=== PATIENT | female | born 1930 | race Caucasian/White ===

== ENCOUNTER 2017-02-07 14:33 | Inpatient (IN) ==
[2017-02-07] MEDS ORDERED: PERCOCET-5 PO ONE (15:17)
[2017-02-07] MEDS ORDERED: NS 1,000 ML IV ONE ×2 (15:17→17:18)
[2017-02-07 15:49] LABS: MANUAL DIFF NEEDED? NO
[2017-02-07 15:58] LABS: URINE CULTURE NEEDED? NO; URINE MICRO REVIEW NEEDED? NO; URINE SOURCE CLEAN CATCH
[2017-02-07 16:07] LABS: BASO% 0.4 % (0.0-0.8); EOS# 0.06 X1000 (0.0-0.7); EOS% 1.2 % (0.0-10.0); HEMATOCRIT 35.7 % (37.0-47.0); HEMOGLOBIN 11.5 g/dL (12.0-16.0); LYMPH# 1.06 X1000 (1.2-3.4); LYMPH% 21.5 % (20.5-51.1); MCH 27.3 PG (27-31); MCHC 32.2 g/dL (33-37); MCV 84.6 FL (81-99); MONO# 0.64 X1000 (0.11-0.59); NEUT% 63.9 % (42.2-75.2); PLT 257 X1000 (130-400); RBC 4.22 XMIL (4.2-5.4)
[2017-02-07 16:08] LABS: BILIRUBIN URINE NEGATIVE (NEGATIVE); BLOOD URINE NEGATIVE (NEGATIVE); COLOR YELLOW; GLUCOSE URINE NEGATIVE (NEGATIVE); LEUKOCYTES URINE NEGATIVE (NEGATIVE); NITRITE URINE NEGATIVE (NEGATIVE); PROTEIN URINE NEGATIVE (NEGATIVE); SP GRAVITY URINE 1.017; TURBIDITY URINE CLEAR (CLEAR); UROBILINOGEN URINE NORMAL (NORMAL)
[2017-02-07 16:09] LABS: UR EPITHELIAL CELLS <10 /HPF (<10); URINE BACTERIA NEGATIVE /HPF; URINE RBC <10 /HPF (<10); URINE WBC <10 /HPF (<10)
[2017-02-07 16:44] LABS: ALBUMIN 3.6 g/dL (3.5-5.0); CALCIUM 9.3 mg/dL (8.8-10.2); TOTAL BILIRUBIN 0.14 mg/dL (0.20-1.00); TOTAL PROTEIN 7.6 g/dL (6.3-8.3)
[2017-02-07 16:45] LABS: POTASSIUM 6.3 mmol/L (3.5-5.1)
[2017-02-07] MEDS ORDERED: D50W SYRINGE IV ONE (16:53)
[2017-02-07] MEDS ORDERED: CALCIUM GLUCONATE IV PUSH ONE (16:53)
[2017-02-07] MEDS ORDERED: HUMULIN R IV ONE (16:53)
[2017-02-07] MEDS ORDERED: D50W SYRINGE ONE (16:56)
--- NOTE | 2017-02-07 17:18 | PROVIDER DOCUMENTATION ---
This chart was entered by Noemí Carroll Scribe, acting as scribe for Francisco Wilson MD. HPI-Abdominal Pain/GI Problem - General Chief Complaint: Flank Pain Stated Complaint: KIDNEY PAIN Time Seen by Provider: 02/07/17 14:49 Source: patient Allergies/Adverse Reactions: Patient Allergies Allergy/AdvReac Type Severity Reaction Status Date / Time No Known Allergies Allergy Verified 02/07/17 14:45 Home Medications: Home Medication List Medication Instructions Recorded Confirmed Last Taken Type Multivitamins/Minerals [Centrum 1 each PO DAILY 01/19/17 02/04/17 02/04/17 10: 00 History Silver] Hydrocodone/APAP 5 mg/325 mg 1 tab PO BID 02/04/17 02/04/17 02/07/17 14:15 History [[place]-5] - History of Present Illness-ABD Nature of Presenting Problems: Pt is a 86 year old female who came to the ED with a cc of right sided flank pain. Pt reports she had a fall 4 weeks ago and came to the ED and had an x-ray , and has been back three times since then for back pain. Pt reports she has had a UTI two weeks ago and reports it is gone now. Abdominal Pain Onset Location: reports: [facility] Pain Radiation: reports: no radiation Quality of Pain: reports: sharp Severity in ED: reports: mild Onset/Duration: reports: 1 week ago Timing: reports: still present Activities at Onset: reports: none Exposure to sick contacts?: Yes Modifying Factors: improves with: nothing Associated Symptoms: reports: denies symptoms Last BM: unsure Dark Stools Present?: reports: none noticed Rectal Bleeding: reports: none Rectal Pain: reports: none Bruising or Bleeding Gums?: No Similar Symptoms Previously?: Yes Recently seen or treated by another doctor?: Yes Review of Systems - Adult - REVIEW OF SYSTEMS - ADULT Constitutional: denies: chills, fever Eyes: reports: no symptoms reported Ears, Nose, Mouth & Throat: reports: no symptoms reported Cardiovascular: reports: no symptoms reported Respiratory: reports: no symptoms reported Gastrointestinal: denies: diarrhea, nausea, vomiting Genitourinary: reports: flank pain (right). denies: dysuria, urinary retention Musculoskeletal: reports: no symptoms reported Integumentary: reports: no symptoms reported Neurological: denies: paresthesia, syncope Psychiatric: reports: no symptoms reported Endocrine: reports: no symptoms reported Hematologic/Lymphatic: reports: no symptoms reported Allergic/Immunologic: reports: no symptoms reported All Other Systems: Reviewed and Negative Past History - Adult - PAST MEDICAL HISTORY-ADULT Review of Records: reports: Nursing Assessment Review Major Childhood Illnesses: reports: denies history Cardiovascular: reports: denies history Respiratory: reports: denies history Gastrointestinal: reports: denies history Obstetrical/Gynecological: reports: denies history Genitourinary: reports: kidney stones Musculoskeletal: reports: denies history Neurological: reports: dementia Endocrine/Immune: reports: denies history Other Conditions: reports: denies history - PRIOR SURGERIES/PROCEDURES Surgical/Procedure History: reports: hysterectomy, other (cataract sx) - IMMUNIZATION STATUS Childhood Immunizations: See Nurse Assessment Flu Vaccine: See Nurse Assessment - FAMILY HISTORY Family History: reviewed, not pertinent Physical Exam-General - PHYSICAL EXAM-ADULT Initial Vital Signs Reviewed: Yes - CONSTITUTIONAL General Appearance: appears well, alert, no apparent distress - EYES Eyes: PERRL/EOMI, pink conjunctivae - HEAD, EARS, NOSE, MOUTH & THROAT HENMT: normocephalic/atraumatic, moist mucous membranes - NECK Neck: non-tender, full range of motion - RESPIRATORY Respiratory: chest non-tender, lungs clear - CARDIOVASCULAR Cardiovascular: normal peripheral pulses, regular rate, rhythm - GASTROINTESTINAL (ABDOMEN) Abdominal Exam: normal bowel sounds, tenderness (left flank pain) - MUSCULOSKELETAL Back Exam: normal inspection, no CVA tenderness Extremity: normal range of motion, non-tender - SKIN Integumentary: normal color, normal turgor - NEUROLOGIC Neurologic: grossly normal - PSYCHIATRIC Psych/Mental Status: normal mood/affect, normal thought content, normal thought process, oriented x 3 Progress - PLAN OF CARE/RESULTS Progress/Plan/Lab Results: Vital Signs - 8 hr 02/07/17 14:36 Temperature 98.7 F Pulse Rate 72 Respiratory Rate 18 Blood Pressure 187/77 O2 Sat by Pulse Oximetry 97 Result Diagrams: 02/07/17 15:42 02/07/17 15:42 - EKG 1 Time of EKG reading by physician:: 16:45 EKG Read and Signed by:: Francisco Wilson EKG Interpretation (*Must complete 3 of following elements*): Abnormal Rate: 66 (septal infarct, age undetermined) Rhythm: NSR - CONSULTS/PCP/HOSPITALIST Notification #1 *Consult/PCP/Hospitalist*: Dr. Rollins Time Discussed: 17:17 Consult Disposition: Admit Departure - Departure Date of Disposition Decision: 02/07/17 Time of Disposition Decision: 17:17 DIAGNOSIS: Left flank pain, Renal insufficiency, Hyperkalemia Disposition: ADMITTED INPATIENT 09 Certified Medical Emergency: Emergent Condition: Stable Referrals and Follow-Ups: Santosh Fairchild MD [Primary Care Provider] - - Critical Care Note This patient required my direct & personal management of CC.: No This chart was documented by the indicated scribe, (Noemí Carroll Scribe) and accurately reflects the services I performed and decisions made by me, Francisco Wilson MD, as attested by the provider's signature.
--- NOTE | 2017-02-07 22:23 | HISTORY AND PHYSICAL ---
CHIEF COMPLAINT: Right flank and back pain. HISTORY OF PRESENT ILLNESS: This 86-year-old white female is a patient of Dr. Fairchild. He has not seen her in a number of months. Dating back to September, the patient fell suffering pelvic fractures which she seems to have recovered from. The daughter states that she fell in December and it is documented the patient fell sometime around January 19. She was seen in the emergency room then and there were no fractures identified on x-rays. She was sent home. She came back the following week to the emergency room and I happened to see her there. We did a CT scan at that time which showed no obstructing kidney stones. It did show some cholelithiasis and healing pelvic fractures from September. There was no other pathology identified. The patient came back to the emergency room the following week and was diagnosed with a UTI and was given Septra DS for this. She returned to the emergency room today with the onset of right lower back pain which was severe enough for her to want to go to the emergency room. The emergency room physician ordered routine labs which showed an elevation in creatinine of 1.6 and a potassium of 6.3, which was confirmed to be nonhemolyzed. The patient was given IV fluids, calcium, insulin and glucose in order to drive the potassium down. She did not have any EKG changes nor was she symptomatic from palpitations. Her right flank pain has been the 2nd recurrence of this pain since her fall in mid January. It seems to be a sharp, excruciating pain and always on the right side which is intermittent. It seems to go away rather spontaneously. Today the patient's son gave her 2 pain pills and she is actually rather incapacitated the time of my examination. Most of the historical elements were gathered from the chart and from speaking with her daughter who is in from [place]. PAST MEDICAL HISTORY: 1. Dementia. 2. History of pelvic fractures, likely osteoporotic. 3. History of kidney stones which were removed via lithotripsy by Dr. Campbell. SOCIAL HISTORY: The patient lives in an assisted living facility and spends most of her time in a wheelchair. She can walk with a lot of assistance or at least transfer with a lot of assistance but generally spends her time sitting in the wheelchair. She does go to meals at assisted living and has been eating well and in fact, gaining weight. She has the support of her son who lives locally and a daughter who lives in [place]. ALLERGIES: No known drug allergies. MEDICATIONS: Multivitamin. REVIEW OF SYSTEMS: This was obtained from the patient's daughter that there were no complaints of any genitourinary symptoms. There was no coughing, wheezing, shortness of breath. No chest pain. The patient's flank pain was not precipitated by eating as far as we know. There were no exacerbating or relieving factors either. We do not have a concise history of the patient's bowel habits. The patient's daughter says that she is easily confused and has trouble remembering things and gets disoriented fairly easily. They have not noticed any increase in this problem. PHYSICAL EXAM: GENERAL: The patient is asleep in the bed sleeping on the right side. She rouses a little bit with deep palpation. She does not appear to have vertebral point tenderness. LUNGS: Clear in all anne. CARDIOVASCULAR: Regular. ABDOMEN: Benign. She does not really react to palpation of the abdomen. EXTREMITIES: Show no peripheral edema. NEUROLOGIC: Was unable to be tested. LABORATORY: Sodium was 135, potassium 6.3, creatinine 1.6. Urinalysis did not show any evidence of blood or infection. White cell count 4.9, hematocrit 35.7. ASSESSMENT AND PLAN: 1. The patient's hypernatremia is somewhat inexplicable. We will recheck this tomorrow. She has been given appropriate treatments in the emergency room and is on intravenous fluids right now. 2. The patient's creatinine elevation from a baseline of 0.9 is likely due to Septra DS and mild to moderate dehydration. We will again recheck this in the morning and when we get her back down to a baseline level will be able to pursue further studies. 3. The patient's intermittent flank pain is certainly a convincing history which would be convincing for recurrent kidney stone on that side. She does have cholelithiasis but no abdominal pain, nausea or vomiting was reported. I plan to get a CT of the abdomen and pelvis with oral and IV contrast at the next opportune moment pending resolution of her creatinine problems. 4. I have written tramadol for pain on a p.r.n. basis. 5. In the event the patient is suffering some small kidney stones which are causing renal colic I have added Flomax to her regimen to aid in ureteral dilatation. 6. This was discussed in detail with the patient's daughter and she is in agreement with this plan to proceed. cc: Barry Rollins MD
[2017-02-08] MEDS: ULTRAM PO PRN ×3 (07:58→19:13)
[2017-02-08] MEDS: FLOMAX PO SCH (07:59)
[2017-02-08 09:26] LABS: MANUAL DIFF NEEDED? NO
[2017-02-08 09:29] LABS: BASO% 0.5 % (0.0-0.8); EOS# 0.05 X1000 (0.0-0.7); EOS% 1.3 % (0.0-10.0); HEMATOCRIT 36.2 % (37.0-47.0); HEMOGLOBIN 11.5 g/dL (12.0-16.0); LYMPH# 0.95 X1000 (1.2-3.4); MCH 27.3 PG (27-31); MCHC 31.8 g/dL (33-37); MCV 85.8 FL (81-99); MONO% 10.5 % (1.7-9.3); MPV 9.8 FL (7.4-10.4); NEUT% 62.7 % (42.2-75.2); PLT 245 X1000 (130-400); RBC 4.22 XMIL (4.2-5.4)
[2017-02-08 09:49] LABS: ALBUMIN 3.1 g/dL (3.5-5.0); CALCIUM 8.9 mg/dL (8.8-10.2); TOTAL BILIRUBIN 0.28 mg/dL (0.20-1.00); TOTAL PROTEIN 6.8 g/dL (6.3-8.3)
--- NOTE | 2017-02-08 12:28 | PROGRESS NOTE ---
DATE: 02/08/2017 SUBJECTIVE: The patient is awake, alert, and seems reasonably oriented, relative to baseline. She answers questions appropriately. She states that she still has some right flank pain which she indicates to be directly on her right side, in between the rib cage and the pelvis. She is not short of breath. Discussion was made with the patient and with her daughter who was present. OBJECTIVE: Vital Signs: 98.1, 67, 18, 142/43, 93% saturated on room air. Fluid balance: Positive 706. General: She is a well-developed, thin white female, in no acute distress. She is alert, oriented, conversive, and generally appropriate. Lungs: Clear to auscultation. Cardiovascular: Regular without appreciable murmur or gallop. Abdominal Exam: Reveals mild flank/back tenderness to palpation but no rebound or peritoneal signs. There does not appear to be tenderness over the ribcage on the right or the a pelvic wing on the right side. LABORATORY: White cell count 3.8, hematocrit 36.2, potassium 5.0, BUN 23, creatinine 1.3. ASSESSMENT AND PLAN: 1. The patient's acute renal failure seems to be resolving with a little bit of IV fluids. Her Septra DS has been discontinued. Her potassium is back within a reasonable range. We plan to continue IV fluids and recheck creatinine tomorrow. If it is back within her baseline range we will proceed with CT of abdomen and pelvis with oral and IV contrast. 2. The patient requests real food so we will feed her until tomorrow's procedure, assuming that will take place. 3. Patient needs to continue in the hospital until she reaches her baseline creatinine and we will proceed with a CT scan tomorrow pending that result. Further disposition can be made. cc: Barry Rollins MD
[2017-02-08] MEDS: NS 1,000 ML IV SCH ×2 (12:39→20:35)
[2017-02-09] MEDS: NS 1,000 ML IV SCH ×3 (03:12→18:38)
--- NOTE | 2017-02-09 07:23 | EKG Report ---
Test Performed on : 02/07/2017 4:45:44 PM Test Reason : hyperkalemia Blood Pressure : / mmHG Vent. Rate : 066 BPM Atrial Rate : 066 BPM P-R Int : 188 ms QRS Dur : 084 ms QT Int : 390 ms P-R-T Axes : 070 -24 056 degrees QTc Int : 408 ms Normal sinus rhythm. Septal infarct (cited on or before 18-SEP-2016) Abnormal ECG When compared with ECG of 18-SEP-2016 12:42, Questionable change in initial forces of Septal leads Unconfirmed Result
[2017-02-09 07:35] LABS: MANUAL DIFF NEEDED? NO
[2017-02-09 07:49] LABS: BASO% 0.7 % (0.0-0.8); EOS# 0.11 X1000 (0.0-0.7); EOS% 2.5 % (0.0-10.0); LYMPH# 1.78 X1000 (1.2-3.4); LYMPH% 39.7 % (20.5-51.1); MCH 27.4 PG (27-31); MCHC 31.6 g/dL (33-37); MCV 86.8 FL (81-99); MONO# 0.65 X1000 (0.11-0.59); MONO% 14.5 % (1.7-9.3); MPV 10.1 FL (7.4-10.4); NEUT% 42.6 % (42.2-75.2); PLT 262 X1000 (130-400); RBC 4.38 XMIL (4.2-5.4)
[2017-02-09] MEDS: ULTRAM PO PRN ×2 (08:49→18:38)
[2017-02-09 08:58] LABS: CALCIUM 8.5 mg/dL (8.8-10.2); MAGNESIUM 1.7 mg/dL (1.5-2.7)
--- NOTE | 2017-02-09 10:06 | PROGRESS NOTE ---
DATE: 02/09/2017 SUBJECTIVE: The patient states that her right lower back and flank have been hurting all night. She has been getting her pain medication with some relief. I spoke at length with the patient's daughter and son. OBJECTIVE: Vital signs: 97.6, 70 16, 164/62. Fluid balance positive 1 L. Lungs: Clear. Cardiovascular: Regular. Musculoskeletal: On palpation the patient's flank and back revealed a paraspinal muscle spasm which seemed to be the most tender spot. She was not tender over her ribcage or the pelvic wing. I did not detect discrete intra-abdominal pathology on palpation of the right side of her abdomen. LABORATORIES: Creatinine is 1.2. GFR 43. Potassium is 5.0. ASSESSMENT AND PLAN: 1. I spoke at length with the patient's daughter and son and expressed my concerns about proceeding with contrasted CT scan with the patient's creatinine at 1.2. Hopefully, she will return to her baseline creatinine of 0.9 and we will be able to proceed with that study. I expressed with him the fact that if she is still hurting and we send her home that I am afraid that the assisted living will just send her back to the hospital. I also feel like we do not have a good answer for her low back pain and flank pain. I resolve to get physical therapy involved and we will continue tramadol and add a little bit of methocarbamol for some relief to her muscle spasm. 2. We will increase IV fluids to 165 mL/h and recheck creatinine in the morning. 3. This was discussed with the patient's family and they were in agreement with this plan of action. cc: Barry Rollins MD
[2017-02-09] MEDS: FLOMAX PO SCH (13:00)
[2017-02-09] MEDS: ROBAXIN PO SCH ×2 (13:00→20:41)
[2017-02-10] MEDS: NS 1,000 ML IV SCH ×4 (00:56→17:32)
[2017-02-10 05:54] LABS: MANUAL DIFF NEEDED? NO
[2017-02-10 06:05] LABS: BASO% 0.5 % (0.0-0.8); EOS% 2.6 % (0.0-10.0); HEMATOCRIT 35.6 % (37.0-47.0); HEMOGLOBIN 11.4 g/dL (12.0-16.0); LYMPH# 1.19 X1000 (1.2-3.4); LYMPH% 31.2 % (20.5-51.1); MCH 27.5 PG (27-31); MONO# 0.46 X1000 (0.11-0.59); MONO% 12.1 % (1.7-9.3); MPV 9.8 FL (7.4-10.4); NEUT% 53.6 % (42.2-75.2); PLT 225 X1000 (130-400); RBC 4.14 XMIL (4.2-5.4)
[2017-02-10 06:50] LABS: CALCIUM 8.5 mg/dL (8.8-10.2); POTASSIUM 4.4 mmol/L (3.5-5.1)
[2017-02-10 07:58] VITALS: BP 169/87
[2017-02-10] MEDS: FLOMAX PO SCH (09:56)
[2017-02-10] MEDS: ROBAXIN PO SCH (09:56)
[2017-02-10] MEDS: ULTRAM PO PRN (09:56)
--- NOTE | 2017-02-10 11:21 | Diag Imaging Result Doc PS360 ---
EXAM: ABDOMEN/PELVIS W/CONTRAST INDICATION: right flank pain COMPARISON: 01/30/2017 FINDINGS: There is minimal subsegmental atelectasis versus scarring at the right lung base. There is a stable 9 mm hypodensity in the anterior right middle lobe that is stable, probably representing a small cyst. There are several calcified stones layering in the lumen of the gallbladder. There is no pericholecystic inflammatory change. There is stable left renal atrophy. There are several hypodensities involving both kidneys. These do not appear to be enhancement and are stable as compared to the previous unenhanced study. These probably represent multiple cysts. Most exhibit a higher density than that of simple cystic fluid, probably due to internal blood products/proteinaceous debris. Consider surveillance with renal ultrasound. Largest of these is on the left measuring up to 3.2 cm in the greatest dimension. There is no hydronephrosis. Similar to the previous study, there several intrarenal stones bilaterally. The urinary bladder is unremarkable. There is diffuse thickening involving most of the colonic wall, most significant at the transverse colon. This may be, at least in part, due to nondistention. Correlate clinically to exclude nonspecific mild colitis. There is no evidence of bowel obstruction. There has been a previous hysterectomy. There is no free abdominal gas or free fluid. There is extensive aortoiliac atherosclerotic calcification and there is mild ectasia of the infrarenal aorta with no evidence of aneurysm. The remainder of the solid viscera of the abdomen and pelvis and the remainder of the GI tract are essentially unremarkable. There are healed pubic rami fractures on the right. The bony structures are grossly intact, otherwise. IMPRESSION: 1.Fairly diffuse and mild colonic wall thickening. This may be due to incomplete distention. A component of colitis cannot be excluded. 2.Multiple mildly complex renal cysts bilaterally. Consider ultrasound follow-up. 3.Other incidental/nonacute findings detailed above. Electronically signed by Roger Woods 02/10/2017 11:19 AM
--- NOTE | 2017-02-10 20:29 | DISCHARGE SUMMARY ---
ADMISSION DATE: 02/07/2017 DISCHARGE DATE: 02/10/2017 DISCHARGE DIAGNOSES: 1. Acute renal failure. 2. Hyperkalemia. 3. Chronic right lower back pain. 4. Personal history of urinary calculus. HOSPITAL COURSE: This 86-year-old white female was seen in the emergency room for the fourth time in a month. She was admitted due to an elevation in creatinine and a high potassium level of 6.3. The patient was treated for the potassium problem in the emergency room affectively and was started on IV fluids. On her last ER visit, she had been diagnosed with the urinary tract infection and started on Septra DS which was likely the culprit of her acute renal failure. She had a creatinine of 1.6 with a baseline of 0.9. She was hydrated for 2 days and returned to her baseline of 0.9. Because the patient had been suffering from recurrent low back pain, we did a CT scan with oral and IV contrast which basically had no acute findings. I discussed the findings with the patient's family and gave her a diagnosis basically of musculoskeletal pain. We will continue her on tramadol as well as methocarbamol to try and loosen up her back. At the time of discharge, the patient was having some tenderness in the paraspinal muscles on the back on the right side. I think she would benefit from physical therapy and a home health evaluation once she is discharged. I discussed this in its entirety with the patient's son. He was in agreement with this treatment course, and she will be discharged home today. cc: Barry Rollins MD
== END 2017-02-10 18:01 ==
LOC: ED 14:33 → 4N 17:41
PROVIDERS: ADMIT Internal Medicine; ATTEND Internal Medicine